=== PATIENT | female | born 1950 | race Caucasian/White ===

== ENCOUNTER 2020-02-13 12:30 | Emergency (ER) | payer MEDICARE ==
[2020-02-13] MEDS ORDERED: NORCO 5-325 TA1 EACH PO (15:18)
[2020-02-13] MEDS ORDERED: ZOFRAN4 M1 PO (15:20)
== END 2020-02-13 15:32 | disposition home or self-care (01) ==
LOC: FER 12:30
DX: U07.1 COVID-19 (principal); R51.9 Headache, unspecified; J45.909 Unspecified asthma, uncomplicated
CPT/HCPCS: 70450